=== PATIENT | female | born 1985 | race Caucasian/White ===

== ENCOUNTER → 2017-09-11 16:23 | Outpatient (CLI) | payer BC, SELFPAY ==
[2017-09-11 18:11] LABS: T4 Free Direct 0.93 ng/dL (0.76-1.46); Thyroid Stim Hormone (TSH) 2.25 uIU/mL (0.358-3.74)
== END ==
PROVIDERS: Family Provider Family Medicine; PCP Family Medicine; Visit Provider Family Medicine
DX: E01.0 Iodine-deficiency related diffuse (endemic) goiter (principal)
CPT/HCPCS: 36415; 84439; 84443

== ENCOUNTER 2020-08-13 22:39 | Emergency (ER) | payer OTHER, SELFPAY ==
[2020-08-13 22:40] VITALS: BP 129/57; PULSE 89; RESP 18; TEMP 36.9; O2SAT 95; BMI 37.3
--- NOTE | 2020-08-13 22:58 | ED.DCSUM_ITS ---
History of Present Illness Chief Complaint: Shortness of Breath Informant: Patient Onset: Days - Of symptoms August 11. Context: Sudden Onset Timing: Continuous Quality: Shortness of breath at rest and dyspnea on exertion Location: Upper respiratory Current Severity: Mild Maximum Severity: Moderate Worsened by: Strenuous activity Relieved by: Nothing Associated Symptoms: Malaise, fever, upper respiratory symptoms Narrative: Patient is a 34-year-old female who had a positive Covid test on August 11 performed at the walk-in urgent care at [place]. A copy of the test was obtained and made part of the chart. Patient states daughter was sick for several days prior to August 11. Since she had symptoms over suggestive of Covid she had a Covid test which returned positive. Because she has been exposed to her daughter she obtained a test at the walk-in urgent care. She was informed the test was positive. The evening that she received the results she developed a temperature of 102, headache, rhinorrhea, congestion sore throat and cough. She had increased shortness of breath since Monday evening. She states her cough is productive of a thick slimy green sputum. She denies history of asthma. She denies history of smoking. She does have history of hypertension for the past 5 years. She denies history of VTE. She has no risk factors for VTE. Patient denies rash. She denies discoloration of digits. She did have nausea and vomiting which has resolved. She denies diarrhea. Prior similar symptoms: No Recent Illness/Hospitalization: No - Past Medical History (1) History of hypertension Status: Acute (2) COVID-19 virus antibody detected Status: Acute Past Medical History - Allergies and Home Meds Allergies/Adverse Reactions: Allergies No Known Allergies Allergy (Verified 08/13/20 22:40) Primary Care Physician: Rafael Elizabeth DO [Primary Care Provider] - Surgical History: noncontributory Lives: With Family Smoking Status: Never smoker Alcohol: None Drugs: None Review of Systems General: Reports: Chills, Fever, Malaise. Denies: Subjective, Sweats, Weight loss Eyes: Reports: - - She reported photophobia with onset of symptoms.. Denies: Visual changes - bilaterally, Blurred Vision - bilaterally, Diplopia ENT: Reports: Rhinorrhea, Sore throat. Denies: Bilateral ear pain Cardiovascular: Denies: Chest pain, Palpitations, Heart racing Respiratory: Reports: Dyspnea, Cough, Sputum. Denies: Dyspnea on exertion, Orthopnea, Paroxysmal nocturnal dyspnea Gastrointestinal: Reports: Nausea, Vomiting. Denies: Abdominal pain, Diarrhea, Melena, Hematochezia Genitourinary: Denies: Dysuria, Hematuria, Frequency Musculoskeletal: Reports: Myalgias, Arthralgias, Extremity Pain. Denies: Neck pain, Back pain, Swelling Skin: Denies: Rash, Wounds Neurological: Reports: Headache, Weakness. Denies: Parasthesia Endocrine: Denies: Polyuria, Polydipsia Hematologic: Denies: Easy bruising, Easy bleeding Physical Exam Vital Signs/Narrative: Vital Signs Temp Pulse Resp BP Pulse Ox 08/13/20 22:40 98.5 F 89 18 129/57 H 95 Inital Vital Signs reviewed: Yes General: Well nourished, Well developed, Obese, No Acute Distress Head: Normocephalic, Atraumatic Eyes: Perrl, EOMI ENT: Moist mucous membranes, No rhinorrhea Neck: Supple, Nontender, No lymphadenopathy, No JVD Cardiovascular: Regular rate, Regular rhythm, No murmurs, Normal S1, Normal S2 Respiratory: No distress, CTA bilaterally, Chest nontender Abdomen: Soft, Nontender, Nondistended, Normal bowel sounds Back: Nontender, Normal Inspection Extremities: Nontender, No edema, - - There is no asymmetry, swelling, discolora tion, leg vein distention, palpable cords or tenderness along the distribution of the deep venous system. Skin: Normal color, No rash Neurological: Alert, Oriented x3, Cranial nerves II-XII grossly intact, Normal Strength, Normal Sensation, Normal Gait Psychological: Normal affect, Normal Mood Diagnostic/Tx/Re-eval Chest X-Ray - ED: 2 View, Read by ED Physician, Normal, Heart, Lungs, Mediastinum, Bony Structures, No Acute Disease, - - Creased density midclavicular line left lower lung field on the left due to nipple shadow. Otherwise x-ray is normal. 08/13/20 23:00 Chest PA and Lateral [RAD] Stat - Medical Decision Making Patient had a positive Covid test as previously mentioned. Because of increased shortness of breath will obtain chest x-ray to determine if she has pneumonia. Suspect her shortness of breath is a symptom of the Covid infection. Her vital signs are normal. She is PERC negative. ED Disposition - Plan for ED Patient: Disposition: Home or Assisted Living Diagnosis: Dyspnea due to COVID-19 Instructions: Coronavirus Disease 2019 (COVID-19): Caring for Yourself or Others, Coronavirus Disease 2019 (COVID-19): Overview Referrals: Rafael Elizabeth, [Primary Care Provider] - 10-14 Days if not better
--- NOTE | 2020-08-13 23:00 | RAD_ITS ---
STUDY: X-RAY CHEST REASON FOR EXAM: Female, 34 years old. COVID + test on Monday, feeling SOB today. TECHNIQUE: PA and lateral views of the chest. COMPARISON: None. FINDINGS: The lungs are clear and expanded. There is no demonstrated pleural abnormality. Normal size heart. Normal mediastinum and keshia. Normal visualized pulmonary arteries. Normal visualized aortic arch and descending thoracic aorta. Normal visualized thoracic spine. Normal visualized ribs, clavicles, and shoulders. There is no demonstrated abnormality of the visualized soft tissue structures of the upper abdomen. RAD/Chest PA and Lateral IMPRESSION: Normal x-ray examination of the chest. Electronically Signed: May Brady MD at 23:19 EST , Service support ,
== END 2020-08-13 23:58 | disposition home or self-care (01) ==
LOC: ED 23:21
PROVIDERS: Emergency Provider Emergency Medicine; PCP Family Medicine
DX: U07.1 COVID-19 (principal); R06.09 Other forms of dyspnea; I10 Essential (primary) hypertension
CPT/HCPCS: 71046; 99282